=== PATIENT | male | born 1950 | race Caucasian/White ===

== ENCOUNTER → 2017-02-16 | Outpatient (REF) | payer BC ==
[2017-02-16 11:40] LABS: ALBUMIN 3.9 GM/DL (3.2-5.2); ALKALINE PHOSPHATASE 64 U/L (45-117); ALT/SGPT 24 U/L (12-78); ANION GAP 8 MEQ/L (8-16); AST/SGOT 19 U/L (15-37); BILIRUBIN,TOTAL 0.7 MG/DL (0.2-1.0); BLOOD UREA NITROGEN 19 MG/DL (7-18); CARBON DIOXIDE LEVEL 29 MEQ/L (21-32); CHLORIDE LEVEL 100 MEQ/L (98-107); CHOLESTEROL LEVEL 186 MG/DL (<200); CREATININE FOR GFR 0.93 MG/DL (0.70-1.30); GLOMERULAR FILTRATION RATE > 60.0 (>49); GLUCOSE, FASTING 90 MG/DL (80-110); POTASSIUM SERUM 4.3 MEQ/L (3.5-5.1); SODIUM LEVEL 137 MEQ/L (136-145); TOTAL PROTEIN 6.5 GM/DL (6.4-8.2); TRIGLYCERIDES LEVEL 99 MG/DL (<150)
== END ==
LOC: M SFHCPLAZ 07:57
PROVIDERS: ATTEND Internal Medicine
DX: Z00.00 Encounter for general adult medical examination without abnormal findings (principal); I10 Essential (primary) hypertension; E78.00 Pure hypercholesterolemia, unspecified; R97.20 Elevated prostate specific antigen [PSA]

== ENCOUNTER → 2017-12-31 | Outpatient (CLI) | payer MEDICARE | LOC: M SMT 11:12 | DX: I48.1 Persistent atrial fibrillation (principal) | CPT/HCPCS: 84443 ==

== ENCOUNTER 2018-01-04 14:08 | Day surgery (SDC) | payer MEDICARE ==
[2018-01-04] MEDS: LR 1,000 ML IV (14:42)
== END 2018-01-04 18:36 | disposition home or self-care (01) ==
LOC: M SDC 14:08
DX: I48.91 Unspecified atrial fibrillation (principal); K21.9 Gastro-esophageal reflux disease without esophagitis; I10 Essential (primary) hypertension; Z88.8 Allergy status to other drugs, medicaments and biological substances; Z79.899 Other long term (current) drug therapy
CPT/HCPCS: 92960

== ENCOUNTER 2018-02-22 12:23 | Day surgery (SDC) | payer MEDICARE ==
[~2018-02-22 12:23] MED LIST: LIDOCAINE 2% INJ 100 MG/5 ML SDV (FOR ANES.) As Ordered; MIDAZOLAM INJ 2 MG/2 ML VIAL (J2250) As Ordered; ONDANSETRON 4MG/2ML VIAL (J2405) As Ordered; PROPOFOL 200 MG/20 ML VIAL As Ordered
[2018-02-22] MEDS: LR 1,000 ML IV (13:45)
[2018-02-22] MEDS ORDERED: PERCOCET 5MG/325MG TAB PO (15:45)
[2018-02-22] MEDS ORDERED: ONDANSETRON 4MG/2ML VIAL (J2405) IV (15:45)
[2018-02-22] MEDS ORDERED: LR 1,000 ML IV (15:45)
== END 2018-02-22 16:05 | disposition home or self-care (01) ==
LOC: M SDC 12:23
DX: I48.4 Atypical atrial flutter (principal); I48.91 Unspecified atrial fibrillation; R55 Syncope and collapse; I10 Essential (primary) hypertension; E78.5 Hyperlipidemia, unspecified; Z79.82 Long term (current) use of aspirin; Z79.02 Long term (current) use of antithrombotics/antiplatelets; Z79.899 Other long term (current) drug therapy; K21.9 Gastro-esophageal reflux disease without esophagitis
CPT/HCPCS: 92960

== ENCOUNTER → 2018-02-25 | Outpatient (REF) | payer MEDICARE ==
[2018-02-25 12:41] LABS: HEMATOCRIT 45.1 % (42.0-52.0); HEMOGLOBIN 15.3 g/dl (13.5-17.5); MEAN CORPUSCULAR HEMOGLOBIN 32.9 pg (27.0-33.0); MEAN CORPUSCULAR HGB CONC 33.9 g/dl (32.0-36.5); PLATELET COUNT, AUTOMATED 270 10^3/uL (150-450); RED BLOOD COUNT 4.65 10^6/uL (4.30-6.10); WHITE BLOOD COUNT 5.7 10^3/uL (4.0-10.0)
[2018-02-25 13:24] LABS: ALBUMIN/GLOBULIN RATIO 1.18 (1.00-1.93); ALKALINE PHOSPHATASE 79 U/L (45-117); ALT/SGPT 20 U/L (12-78); ANION GAP 6 MEQ/L (8-16); AST/SGOT 16 U/L (7-37); BILIRUBIN,TOTAL 0.8 MG/DL (0.2-1.0); BLOOD UREA NITROGEN 21 MG/DL (7-18); CALCIUM LEVEL 9.3 MG/DL (8.8-10.2); CARBON DIOXIDE LEVEL 29 MEQ/L (21-32); CHLORIDE LEVEL 99 MEQ/L (98-107); CHOLESTEROL LEVEL 226 MG/DL (<200); CHOLESTEROL RISK RATIO 5.255 (<5); CREATININE FOR GFR 1.02 MG/DL (0.70-1.30); GLOMERULAR FILTRATION RATE > 60.0 (>49); GLUCOSE, FASTING 91 MG/DL (70-100); HDL CHOLESTEROL 43 MG/DL (>40); LDL CHOLESTEROL 155 MG/DL (<100); NON-HDL-C 183 MG/DL; POTASSIUM SERUM 5.4 MEQ/L (3.5-5.1); SODIUM LEVEL 134 MEQ/L (136-145); TOTAL PROTEIN 7.4 GM/DL (6.4-8.2); TRIGLYCERIDES LEVEL 141 MG/DL (<150)
== END ==
LOC: M SFHCPLAZ 07:27
DX: Z87.11 Personal history of peptic ulcer disease (principal); I10 Essential (primary) hypertension; E78.00 Pure hypercholesterolemia, unspecified; R97.20 Elevated prostate specific antigen [PSA]
CPT/HCPCS: 80053

== ENCOUNTER → 2018-06-13 | Outpatient (REF) | payer MEDICARE ==
[~2018-06-13] MED LIST changes: +AMIO200T PO; +ESTR1DIS3 TOP; -LIDOCAINE 2% INJ 100 MG/5 ML SDV (FOR ANES.) As Ordered; +LISI20TA PO; -MIDAZOLAM INJ 2 MG/2 ML VIAL (J2250) As Ordered; +MULT1TAB10 PO; -ONDANSETRON 4MG/2ML VIAL (J2405) As Ordered; -PROPOFOL 200 MG/20 ML VIAL As Ordered; +SPIR100T3 PO; +XARE20TA PO
[2018-06-13 14:50] LABS: BASO % 0.5 % (0.0-1.0); EOS # 0.1 10^3/uL (0.0-0.50); EOS % 0.9 % (0.0-3.0); HEMATOCRIT 43.6 % (42.0-52.0); HEMOGLOBIN 14.7 g/dl (13.5-17.5); LYMPH # 1.1 10^3/uL (1.5-4.5); LYMPH % 13.4 % (24.0-44.0); MEAN CORPUSCULAR HEMOGLOBIN 32.5 pg (27.0-33.0); MEAN CORPUSCULAR HGB CONC 33.7 g/dl (32.0-36.5); MEAN CORPUSCULAR VOLUME 96.2 fl (80.0-96.0); MONO % 12.5 % (0.0-5.0); NEUTROPHILS # 5.9 10^3/uL (1.8-7.7); PLATELET COUNT, AUTOMATED 289 10^3/uL (150-450); RED BLOOD COUNT 4.53 10^6/uL (4.30-6.10); WHITE BLOOD COUNT 8.1 10^3/uL (4.0-10.0)
[2018-06-13 14:58] LABS: ALBUMIN 4.2 GM/DL (3.2-5.2); ALT/SGPT 23 U/L (12-78); BILIRUBIN,TOTAL 0.4 MG/DL (0.2-1.0); BLOOD UREA NITROGEN 31 MG/DL (7-18); CALCIUM LEVEL 9.2 MG/DL (8.8-10.2); CARBON DIOXIDE LEVEL 27 MEQ/L (21-32); CHLORIDE LEVEL 98 MEQ/L (98-107); GLOMERULAR FILTRATION RATE > 60.0 (>49); GLUCOSE, FASTING 116 MG/DL (70-100); POTASSIUM SERUM 4.7 MEQ/L (3.5-5.1); SODIUM LEVEL 133 MEQ/L (136-145); TOTAL PROTEIN 7.3 GM/DL (6.4-8.2)
== END ==
LOC: M SMT 13:39
PROVIDERS: ATTEND Internal Medicine Cardiovascular Disease
DX: I48.1 Persistent atrial fibrillation (principal)

== ENCOUNTER → 2018-07-12 | Outpatient (CLI) | payer MEDICARE ==
--- NOTE | 2018-07-17 10:03 | SLEEPHOME ---
DATE OF PROCEDURE: 07/12/2018 ORDERED BY: ABY Barajas Diagnostic home sleep testing was performed due to concern for the obstructive sleep apnea syndrome. For testing a NOX-T3 respiratory monitoring device was used. Continuous record was made of pulse, oxygen saturation, airflow, chest, abdominal strain and body position. 9 hours and 59 minutes of data were reviewed. There were 5 hours marked as time in bed. During the interval marked time in bed, there were 61 respiratory events identified of 10 seconds in duration or greater for a respiratory event index of 12.2. The events were primarily obstructive. Baseline pulse rate 72 beats per minute. Pulse rate ranged from 68-89 beats per minute. Baseline saturation was 94%. Saturations fell to 89%. Testing was performed in both the supine and nonsupine positions. IMPRESSION: Abnormal home sleep testing with repetitive respiratory events and oxygen desaturations to 89% with a respiratory event index of 12.2 is consistent with the obstructive sleep apnea syndrome. RECOMMENDATIONS: The patient should undergo formal sleep evaluation and in-laboratory pressure titration.
== END ==
LOC: M SLEEP HO 09:38
PROVIDERS: ATTEND Internal Medicine Pulmonary Disease
DX: G47.9 Sleep disorder, unspecified (principal)

== ENCOUNTER → 2018-08-28 | Outpatient (REF) | payer MEDICARE ==
[2018-08-28 10:21] LABS: HEMATOCRIT 39.7 % (42.0-52.0); HEMOGLOBIN 13.8 g/dl (13.5-17.5); MEAN CORPUSCULAR HEMOGLOBIN 32.5 pg (27.0-33.0); MEAN CORPUSCULAR HGB CONC 34.8 g/dl (32.0-36.5); MEAN CORPUSCULAR VOLUME 93.4 fl (80.0-96.0); PLATELET COUNT, AUTOMATED 280 10^3/uL (150-450); RED BLOOD COUNT 4.25 10^6/uL (4.30-6.10); WHITE BLOOD COUNT 6.3 10^3/uL (4.0-10.0)
[2018-08-28 10:59] LABS: ALBUMIN 4.1 GM/DL (3.2-5.2); ALT/SGPT 20 U/L (12-78); BILIRUBIN,TOTAL 0.6 MG/DL (0.2-1.0); BLOOD UREA NITROGEN 22 MG/DL (7-18); CARBON DIOXIDE LEVEL 30 MEQ/L (21-32); CHLORIDE LEVEL 97 MEQ/L (98-107); CHOLESTEROL LEVEL 203 MG/DL (<200); CREATININE FOR GFR 0.89 MG/DL (0.70-1.30); GLOMERULAR FILTRATION RATE > 60.0 (>49); GLUCOSE, FASTING 94 MG/DL (70-100); HDL CHOLESTEROL 43 MG/DL (>40); LDL CHOLESTEROL 134 MG/DL (<100); NON-HDL-C 160 MG/DL; POTASSIUM SERUM 4.5 MEQ/L (3.5-5.1); SODIUM LEVEL 132 MEQ/L (136-145); TRIGLYCERIDES LEVEL 131 MG/DL (<150)
== END ==
LOC: M SFHCPLAZ 07:59
PROVIDERS: ATTEND Internal Medicine
DX: I11.9 Hypertensive heart disease without heart failure (principal); E78.00 Pure hypercholesterolemia, unspecified; Z92.29 Personal history of other drug therapy

== ENCOUNTER → 2018-11-06 | Outpatient (CLI) | payer MEDICARE ==
[2018-11-06 12:54] LABS: BLOOD UREA NITROGEN 19 MG/DL (7-18); CALCIUM LEVEL 9.5 MG/DL (8.8-10.2); CARBON DIOXIDE LEVEL 29 MEQ/L (21-32); CHLORIDE LEVEL 103 MEQ/L (98-107); CREATININE FOR GFR 0.84 MG/DL (0.70-1.30); GLOMERULAR FILTRATION RATE > 60.0 (>49); GLUCOSE, FASTING 93 MG/DL (70-100); SODIUM LEVEL 138 MEQ/L (136-145)
== END ==
LOC: M WUC 08:22
PROVIDERS: ATTEND Internal Medicine Cardiovascular Disease
DX: I48.1 Persistent atrial fibrillation (principal)

== ENCOUNTER → 2019-02-19 | Outpatient (CLI) | payer MEDICARE ==
[~2019-02-19] MED LIST changes: -LISI20TA PO; +LISI20TA19 PO
== END ==
LOC: M SLEEP 19:25
PROVIDERS: ATTEND Nurse Practitioner Family
DX: G47.33 Obstructive sleep apnea (adult) (pediatric) (principal)

== ENCOUNTER 2019-04-12 10:59 | Inpatient (IN) | payer MEDICARE ==
[~2019-04-12] VITALS: Ht 185.4 cm; Wt 84.8 kg
[2019-04-12] MEDS ORDERED: LISI-1046 PO (11:12)
[2019-04-12] MEDS ORDERED: NS 1,000 ML IV SCH (11:37)
[2019-04-12] MEDS ORDERED: MORPHINE 4 MG/ML 1ML VIAL/SYRINGE (J2270) IV PRN (11:45)
[2019-04-12 12:16] LABS: BASO % 0.2 % (0.0-1.0); HEMATOCRIT 43.4 % (42.0-52.0); HEMOGLOBIN 14.9 g/dl (13.5-17.5); LYMPH # 0.5 10^3/uL (1.5-5.0); LYMPH % 5.1 % (24.0-44.0); MEAN CORPUSCULAR HEMOGLOBIN 32.5 pg (27.0-33.0); MEAN CORPUSCULAR HGB CONC 34.3 g/dl (32.0-36.5); MEAN CORPUSCULAR VOLUME 94.6 fl (80.0-96.0); MONO # 0.4 10^3/uL (0.0-0.8); MONO % 4.4 % (0.0-5.0); NEUTROPHILS # 8.3 10^3/uL (1.5-8.5); NEUTROPHILS % 89.9 % (36.0-66.0); PLATELET COUNT, AUTOMATED 224 10^3/uL (150-450); RED BLOOD COUNT 4.59 10^6/uL (4.30-6.10); WHITE BLOOD COUNT 9.2 10^3/uL (4.0-10.0)
[2019-04-12 12:42] LABS: ALBUMIN 3.9 GM/DL (3.2-5.2); ALT/SGPT 17 U/L (12-78); BILIRUBIN,DIRECT 0.1 MG/DL (0.0-0.2); BILIRUBIN,TOTAL 0.6 MG/DL (0.2-1.0); BLOOD UREA NITROGEN 18 MG/DL (7-18); CARBON DIOXIDE LEVEL 27 MEQ/L (21-32); CHLORIDE LEVEL 102 MEQ/L (98-107); CREATININE FOR GFR 0.86 MG/DL (0.70-1.30); GLOMERULAR FILTRATION RATE > 60.0 (>49); GLUCOSE, FASTING 116 MG/DL (70-100); LIPASE 66 U/L (73-393); POTASSIUM SERUM 4.3 MEQ/L (3.5-5.1); SODIUM LEVEL 136 MEQ/L (136-145)
--- NOTE | 2019-04-12 12:46 | REP ---
Clinical: Abdominal pain. Small bowel obstruction Technique: Upright view of the chest with supine and upright views of the abdomen and pelvis. Findings: Frontal upright view of the chest demonstrates no acute cardiopulmonary process or free air below the diaphragm to suspect pneumoperitoneum. Supine and upright views of the abdomen and pelvis demonstrate nonspecific bowel gas pattern without obstruction or perforation. No organomegaly. No abnormal calcifications. Skeletal structures demonstrate chronic dextroconvex scoliosis. Impression: Nonspecific bowel gas pattern by xray. Correlation is made with outside CT examination which did demonstrate element of small bowel obstruction due to a right inguinal hernia containing dilated afferent and collapsed efferent loop of small bowel. Electronically Signed by Addy Lin MD 04/12/2019 12:38 P
[2019-04-12] MEDS ORDERED: PROPOFOL 200 MG/20 ML VIAL As Ordered ONE (14:33)
[2019-04-12] MEDS ORDERED: ROCURONIUM BROMIDE 50 MG/5 ML VIAL As Ordered ONE ×2 (14:33→17:05)
[2019-04-12] MEDS ORDERED: LIDOCAINE 2% INJ 100 MG/5 ML SDV (FOR ANES.) As Ordered ONE (14:35)
[2019-04-12] MEDS ORDERED: dexameTHASONE 4 MG/ML 1ML VIAL (J1100) As Ordered ONE (14:35)
[2019-04-12] MEDS ORDERED: ONDANSETRON 4MG/2ML VIAL (J2405) As Ordered ONE (14:35)
[2019-04-12] MEDS ORDERED: MIDAZOLAM INJ 2 MG/2 ML VIAL (J2250) As Ordered ONE (14:40)
[2019-04-12] MEDS ORDERED: fentaNYL 100 MCG/2 ML INJECTION (J3010) As Ordered ONE ×2 (14:40→16:49)
[2019-04-12] MEDS ORDERED: BUPIVACAINE/EPIN 0.25% 30 ML VIAL As Ordered ONE (15:24)
[2019-04-12] MEDS ORDERED: ceFAZolin 1GM INJ (J0690 PER 500MG) As Ordered ONE (16:27)
[2019-04-12] MEDS ORDERED: ACETAMINOPHEN 1000MG 100ML IV BTL (OFIRMEV) (J0131 PER 10MG) As Ordered ONE (16:42)
[2019-04-12] MEDS ORDERED: KETAMINE HCL 200 MG/20 ML VIAL As Ordered ONE ×2 (16:53→19:34)
[2019-04-12] MEDS ORDERED: SUGAMMADEX SODIUM 500 MG/5 ML VIAL (BRIDION) As Ordered ONE (16:53)
[2019-04-12] MEDS ORDERED: MORPHINE 2 MG/ML 1ML VIAL (J2270) IV PRN ×2 (18:00)
[2019-04-12] MEDS ORDERED: ONDANSETRON 4MG/2ML VIAL (J2405) IV PRN ×2 (18:00→18:30)
[2019-04-12] MEDS ORDERED: PERCOCET 5MG/325MG TAB As Ordered ONE (18:18)
[2019-04-12] MEDS: PERCOCET 5MG/325MG TAB PO PRN (18:22)
[2019-04-12] MEDS ORDERED: fentaNYL 100 MCG/2 ML INJECTION (J3010) IV PRN (18:30)
[2019-04-12] MEDS ORDERED: LR 1,000 ML IV SCH (18:30)
[2019-04-12] MEDS ORDERED: HYDROMORPHONE HCL 0.5 MG/ 0.5 ML SYRINGE (J1170 PER 1) IV PRN (18:30)
[2019-04-12] MEDS ORDERED: PERCOCET 5MG/325MG TAB PO PRN (18:30)
[2019-04-12 18:41] VITALS: BP 157/92
[2019-04-12] MEDS: LR 1,000 ML IV SCH ×2 (18:51→22:59)
[2019-04-12] MEDS: DOCUSATE SODIUM 100 MG CAP PO SCH (20:21)
[2019-04-12 21:15] VITALS: BP 68/40
[2019-04-12 21:25] VITALS: BP 68/40
[2019-04-12] MEDS ORDERED: SUCRALFATE SUSP 1GM/10ML UD PO ONE (21:30)
[2019-04-12] MEDS ORDERED: NS 1,000 ML IV ONE ×2 (21:30)
[2019-04-12 21:46] VITALS: BP 138/82
[2019-04-12 21:49] LABS: BASO % 0.1 % (0.0-1.0); HEMATOCRIT 37.5 % (42.0-52.0); HEMOGLOBIN 12.8 g/dl (13.5-17.5); LYMPH # 0.4 10^3/uL (1.5-5.0); MEAN CORPUSCULAR HEMOGLOBIN 32.5 pg (27.0-33.0); MEAN CORPUSCULAR HGB CONC 34.1 g/dl (32.0-36.5); MEAN CORPUSCULAR VOLUME 95.2 fl (80.0-96.0); MONO # 0.7 10^3/uL (0.0-0.8); MONO % 4.6 % (0.0-5.0); NEUTROPHILS # 12.9 10^3/uL (1.5-8.5); NEUTROPHILS % 91.8 % (36.0-66.0); PLATELET COUNT, AUTOMATED 221 10^3/uL (150-450); RED BLOOD COUNT 3.94 10^6/uL (4.30-6.10)
[2019-04-12 22:20] LABS: CK-MB VALUE MASS 3.9 NG/ML (<3.6); CPK CREATINE PHOSPHOKINASE 73 U/L (39-308); MB/CK RELATIVE INDEX 5.34 (< OR =4); TROPONIN I < 0.02 NG/ML (< 0.10)
[2019-04-12 22:41] LABS: ERYTHROCYTE SEDIMENTATION RATE 4 mm/hr (0-20)
--- NOTE | 2019-04-12 22:43 | REPVR ---
PROCEDURE INFORMATION: Exam: XR Chest, 1 View Exam date and time: 04/12/2019 9:28 PM Clinical history: 68 years old, male; Other: Chest pain TECHNIQUE: Imaging protocol: XR of the chest Views: 1 view. COMPARISON: CR Abdomen,Flat Upright,PA CHEST 04/12/2019 12:11 PM FINDINGS: Tubes, catheters and devices: Loop recorder demonstrated in the precordium. Lungs: Unremarkable. No consolidation. Pleural space: Unremarkable. No pleural effusion. No pneumothorax. Heart/Mediastinum: Unremarkable. No cardiomegaly. Bones/joints: Unremarkable. IMPRESSION: No acute findings. Electronically signed by: Ankur Bacon On 04/12/2019 22:42:52 PM
[2019-04-12 22:45] VITALS: BP 126/78
[2019-04-12 22:50] LABS: ALT/SGPT 13 U/L (12-78); BILIRUBIN,TOTAL 0.6 MG/DL (0.2-1.0); BLOOD UREA NITROGEN 18 MG/DL (7-18); C REACTIVE PROTEIN QUANTITATIV < 0.30 MG/DL (0.00-0.30); CALCIUM LEVEL 7.9 MG/DL (8.8-10.2); CARBON DIOXIDE LEVEL 25 MEQ/L (21-32); CHLORIDE LEVEL 104 MEQ/L (98-107); GLOMERULAR FILTRATION RATE > 60.0 (>49); GLUCOSE, FASTING 162 MG/DL (70-100); POTASSIUM SERUM 4.3 MEQ/L (3.5-5.1); SODIUM LEVEL 136 MEQ/L (136-145); TOTAL PROTEIN 5.4 GM/DL (6.4-8.2)
[2019-04-12] MEDS: PANTOPRAZOLE 40MG INJ (PROTONIX) (C9113) IV SCH (22:59)
[2019-04-12 23:47] VITALS: BP 125/69
[2019-04-13] VITALS (26 sets, daily range): BP systolic 70–124; BP diastolic 46–77; O2SAT 100
--- NOTE | 2019-04-13 00:57 | IPNPDOC ---
Text Note Date of Service The patient was seen on 04/12/19. NOTE A code purple was called on patient due to low bp of 84 at bedside. On assess ment , patient was afebrile, complained that he felt like he was going to pass out. . He denied epigastric pain, denies hematemesis, denied any bleeding. 1 L of fluid was ordered. Patient's blood pressure responded appropriately. EKG was sinus, without any ST elevation, no T-wave abnormality, AR intervals within limits. Telemetry was added to patient for continued monitoring. Chemistries was unremarkable. CBC did show an increased and the PVC from 9.2 this a.m. to 14.0. This could be explained by patient's Decadron usage. Chest x-ray was negative for any acute findings. Patient will continue to monitor overnight for any activity. He is currently stable. PE VITALS: See Below GENERAL APPEARANCE: Alert no acute distress. SKIN: Warm, well perfused. ENT: Palate intact, roy tympanic membrane no bulging, no erythema, Neck supple, no thyromegaly LUNGS: Clear to auscultation bilaterally. HEART: Normal S1, S2. No murmurs, no rubs, no gallops ABDOMEN: Soft. No masses. Bowel sounds are present. Healing surgical scar on patient's right abdomen, no purulent drainage, no signs of infection TRUNK/SPINE:Straight. EXTREMITIES: Moves all extremities equally. No gross deformities. PULSES: 2+ upper and lower extremity . Assessment and plan. Continue treatment and plan as indicated by patient's primary care team VS,Roldan, I+O VS, Roldan, I+O Laboratory Tests 04/12/19 11:37 04/12/19 21:42 Vital Signs Date Time Temp Pulse Resp B/P (MAP) Pulse Ox O2 Delivery O2 Flow Rate FiO2 04/12/19 23:47 98.6 86 12 125/69 (87) 100 Nasal Cannula 2.0 ANGELES PATTEN DO Apr 13, 2019 00:57
[2019-04-13] MEDS: PERCOCET 5MG/325MG TAB PO PRN (01:13)
[2019-04-13] MEDS: LR 1,000 ML IV SCH ×4 (02:53→16:41)
[2019-04-13] MEDS ORDERED: KETOROLAC 30 MG/ML VIAL (J1885) IV SCH (03:00)
--- NOTE | 2019-04-13 05:45 | CR.PDOC ---
General Date of Consultation: Apr 13, 2019 Referring Provider: Gautam Mirza Jr Primary Care Physician: Tyrel Edmonds Attending Physician: DEV LONDON MD Consultation REASON FOR CONSULTATION/CHIEF COMPLAINT: Consultation for medical management HISTORY OF PRESENT ILLNESS: ALLERGIES: Please see below. HOME MEDICATIONS: Please see below. PAST MEDICAL HISTORY: ESSENTIAL HYPERTENSION HYPERCHOLESTEROLEMIA HISTORY OF PEPTIC ULCER DISEASE ELEVATED PROSTATE SPECIFIC ANTIGEN (PSA) PERSONAL HISTORY OF ONGOING TREATMENT WITH HORMONAL THERAPY PERSISTENT ATRIAL FIBRILLATION PAST SURGICAL HISTORY: TONSILLECTOMY IN CHILDHOOD APPENDECTOMY IN CHILDHOOD RIGHT KNEE MENISCUS REPAIR 2004 RIGHT INGUINAL HERNIA REPAIR 2006 REPAIR OF LACERATED EXTENSOR TENDONS LEFT WRIST 2009 PROSTATE BIOPSIES 03/2011, 05/2011. COLONOSCOPY 11/2002 COLONOSCOPY 11/2013 ROTATOR CUFF REPAIR, LEFT 06/2014 ORAL SURGERY 05/2015 EXCISION OF BASAL CELL CARCINOMA OF THE NOSE EARLY 2017? LEFT EYE CATARACT EXTRACTION 09/20/2017 RIGHT EYE CATARACT EXTRACTION 10/18/2017 CARDIAC ABLATION 07/04/2018 FAMILY HISTORY: Father of natural causes at the age of 91, mother at 89 of natural causes. One brother was diabetic and was on hemodialysis. He at the age of 56. SOCIAL HISTORY: , lives with his , denies alcohol. Denies tobacco use REVIEW OF SYSTEMS: CONSTITUTIONAL: No fevers, denies chills, denies weight loss, denies lethargy HEENT: No rhinorrhea, no itchy eyes, no congesion, CARDIOVASCULAR: No murmurs no palpitations and arrhythmias RESPIRATORY: Not cough, No SOB, no issues to report GASTROINTESTINAL: No nausea, no vomiting, no difficulty swallowing, no pain with eating, no diarrhea HEMATOLOGICAL: No bleeding GENITOURINARY:No Issues HEMATOLOGIC/LYMPHATIC: No swelling Physical exam VITALS: See Below GENERAL APPEARANCE: Alert no acute distress. SKIN: Warm, well perfused. LUNGS: Clear to auscultation bilaterally. HEART: Normal S1, S2. No murmurs, no rubs, no gallops ABDOMEN: Soft. No masses. Bowel sounds are present. Healing surgical scar on patient's right side of his abdomen in the right lower quadrant, no purulent drainage, no signs of infection EXTREMITIES: Moves all extremities equally. No gross deformities. PULSES: 2+ upper and lower extremity . LABORATORY DATA: Please see below. ASSESSMENT/PLAN: Patient is a 68-year-old man status post right inguinal repair, with small bowel resection. Been consulted for medical management of chronic medical condition. 1. That is post right inguinal repair with small bowel resection - tolerated the procedure without difficulty. Continues to follow-up with surgery. -Pain is well-controlled -No signs of postoperative infection, no signs of bleeding 2. Persistent atrial fibrillation relation -Telemetry -Hold Xarelto due to surgery 3. Essential hypertension -Continue home medication 5.ELEVATED PROSTATE SPECIFIC ANTIGEN (PSA) -Follow up with outpatient PCP -Hold patient's Estradiol 6. DVT -TEDs Vital Signs/I&O Vital Signs Date Time Temp Pulse Resp B/P (MAP) Pulse Ox O2 Delivery O2 Flow Rate FiO2 04/13/19 05:09 98.3 86 21 74/54 (61) 97 Nasal Cannula 2.0 I&O- Last 24 Hours up to 6 AM 04/13/19 06:00 Intake Total 1040 ml Output Total 525 ml Balance 515 ml Laboratory Data Labs 24H Laboratory Tests 2 04/12/19 11:37: Immature Granulocyte % (Auto) 0.4, Neutrophils (%) (Auto) 89.9H, Lymphocytes (%) (Auto) 5.1L, Monocytes (%) (Auto) 4.4, Eosinophils (%) (Auto) 0.0, Basophils (%) (Auto) 0.2, Neutrophils # (Auto) 8.3, Lymphocytes # (Auto) 0.5L, Monocytes # (Auto) 0.4, Eosinophils # (Auto) 0.0, Basophils # (Auto) 0.0, Nucleated Red Blood Cells % (auto) 0.0, Anion Gap 7L, Glomerular Filtration Rate > 60.0, Calcium Level 9.0, Total Bilirubin 0.6, Direct Bilirubin 0.1, Aspartate Amino Transf (AST/SGOT) 12, Alanine Aminotransferase (ALT/SGPT) 17, Alkaline Phosphatase 80, Total Protein 7.0, Albumin 3.9, Albumin/Globulin Ratio 1.26, Lipase 66L 04/12/19 11:48: Urine Color YELLOW, Urine Appearance CLEAR, Urine pH 6.0, Urine Specific Cumming >1.060H, Urine Protein NEGATIVE, Urine Glucose (UA) NEGATIVE, Urine Ketones 1+H, Urine Blood NEGATIVE, Urine Nitrite NEGATIVE, Urine Bilirubin NEGATIVE, Urine Urobilinogen 0.2, Urine Leukocyte Esterase NEGATIVE, Urine WBC (Auto) 1, Urine RBC (Auto) 6H, Urine Hyaline Casts (Auto) 0, Urine Bacteria (Auto) NEGATIVE, Urine Squamous Epithelial Cells 0, Urine Mucus (Auto) SMALL, Urine Sperm (Auto) , Lactic Acid Level 1.3 04/12/19 21:19: Bedside Glucose (Misc Panel) 163H 04/12/19 21:42: Immature Granulocyte % (Auto) 0.5, Neutrophils (%) (Auto) 91.8H, Lymphocytes (%) (Auto) 3.0L, Monocytes (%) (Auto) 4.6, Eosinophils (%) (Auto) 0.0, Basophils (%) (Auto) 0.1, Neutrophils # (Auto) 12.9H, Lymphocytes # (Auto) 0.4L, Monocytes # (Auto) 0.7, Eosinophils # (Auto) 0.0, Basophils # (Auto) 0.0, Nucleated Red Blood Cells % (auto) 0.0, Anion Gap 7L, Glomerular Filtration Rate > 60.0, Calcium Level 7.9L, Total Bilirubin 0.6, Aspartate Amino Transf (AST/SGOT) 11, Alanine Aminotransferase (ALT/SGPT) 13, Alkaline Phosphatase 63, Total Protein 5.4#L, Albumin 3.0#L, Albumin/Globulin Ratio 1.25, Lactic Acid Level 1.3, Erythrocyte Sedimentation Rate 4, Total Creatine Kinase 73, Creatine Kinase MB 3.9H, Creatine Kinase MB Relative Index 5.34H, Troponin I < 0.02, C-Reactive Protein, Quantitative < 0.30 CBC/BMP Laboratory Tests 04/12/19 11:37 04/12/19 21:42 Allergies Coded Allergies: aspirin (Verified Adverse Reaction, Unknown, hx ulcer, 04/12/19) hx ulcer Home Medications Scheduled Estradiol (Estradiol) 0.05 Mg/24 Hr Dis, TOP 2XW, (Reported) sun wed Multivitamins (Multivitamin Adults) 1 Tab Tab, 1 TAB PO DAILY, (Reported) Rivaroxaban (Xarelto) 20 Mg Tab, 20 MG PO DAILY, (Reported) Miscellaneous Medications Lisinopril (Lisinopril) 2.5 Mg Tablet, (Reported) GME ATTESTATION GME ATTESTATION My faculty preceptor for this patient encounter was physically present during the encounter and was fully available. All aspects of the patient interview, examination, medical decision making process, and medical care plan development were reviewed and approved by the faculty preceptor. The faculty preceptor is aware and concurs with the plan as stated in the body of this note and will attest to such by his/her cosignature. ANGELES PATTEN DO Apr 13, 2019 05:45
[2019-04-13 05:50] LABS: HEMATOCRIT 29.4 % (42.0-52.0); MEAN CORPUSCULAR HEMOGLOBIN 32.7 pg (27.0-33.0); MEAN CORPUSCULAR HGB CONC 33.7 g/dl (32.0-36.5); PLATELET COUNT, AUTOMATED 235 10^3/uL (150-450); RED BLOOD COUNT 3.03 10^6/uL (4.30-6.10)
[2019-04-13 05:53] LABS: HEMOGLOBIN 9.9 g/dl (13.5-17.5)
[2019-04-13 06:30] LABS: ALBUMIN 2.6 GM/DL (3.2-5.2); ALT/SGPT 10 U/L (12-78); BILIRUBIN,TOTAL 0.7 MG/DL (0.2-1.0); BLOOD UREA NITROGEN 22 MG/DL (7-18); CALCIUM LEVEL 7.8 MG/DL (8.8-10.2); CARBON DIOXIDE LEVEL 25 MEQ/L (21-32); CHLORIDE LEVEL 103 MEQ/L (98-107); CK-MB VALUE MASS 4.3 NG/ML (<3.6); CPK CREATINE PHOSPHOKINASE 75 U/L (39-308); CREATININE FOR GFR 1.08 MG/DL (0.70-1.30); GLOMERULAR FILTRATION RATE > 60.0 (>49); GLUCOSE, FASTING 164 MG/DL (70-100); MB/CK RELATIVE INDEX 5.73 (< OR =4); POTASSIUM SERUM 4.9 MEQ/L (3.5-5.1); SODIUM LEVEL 136 MEQ/L (136-145); TOTAL PROTEIN 4.9 GM/DL (6.4-8.2); TROPONIN I < 0.02 NG/ML (< 0.10)
[2019-04-13] MEDS ORDERED: VITMTA PO (07:21)
[2019-04-13] MEDS ORDERED: NS 1,000 ML IV ONE (07:30)
--- NOTE | 2019-04-13 07:36 | IPNPDOC ---
Text Note Date of Service The patient was seen on 04/13/19. NOTE Significant event history: Max cart was called at 7AM. Per nursing report, came in for vitals and Mr. Hoskins was unresponsive. Tele showed sinus bradycardia to 34, initial BP with SBP of 50s, did not check pulse at the time, saturating 96% on 2L. Max cart was called and by the time MD was at bedside, he had started responding. FSBG - >100 repeat SBP - low 100s pulse now 78 saturating 98% on 2L Afebrile Answering questions appropriately, reporting that feels incredibly weak before he becomes unresponsive but does not have worsening abdominal pain, no chest p ain, no palpitations, vision changes, headaches or shortness of breath. MD Exam: Now normotensive, afebrile, RRR, clear to auscultation, euvolemic with no LE edema or JVD, comfortably breathing and speaking in full sentences on 2L NC as prior, no new hematoma, benign abdominal exam, non tender, soft, +bowel sounds, stable neuro exam, AOx3, cranial nerves intact, moving all extremities without any asymmetric weakness. Context - 68M with a history of supraventricular tachyarrhythmias s/p cardioversion and ablation and hypertension, originally presented to [facility] and transferred to [facility] s/p small bowel resection and hernia repair with EBL only 25cc, presenting H/H normal now Hgb 9s s/p aggressive fluids in the setting of episodic hypotensive episodes with brief LOC. Plan -Will get lactate, EKG, continue fluids at 250cc/hr LR and transfer to ICU for close monitoring with tele. -Family notified of episode and transfer -Surgeon already aware of the similar overnight episodes with medicine team managing VS,Fishbone, I+O VS, Fishbone, I+O Laboratory Tests 04/12/19 11:37 04/12/19 21:42 04/13/19 05:24 Vital Signs Date Time Temp Pulse Resp B/P (MAP) Pulse Ox O2 Delivery O2 Flow Rate FiO2 04/13/19 06:37 97.3 87 21 95/61 (72) 100 Nasal Cannula 2.0 l I&O- Last 24 Hours up to 6 AM 04/13/19 06:00 Intake Total 1040 ml Output Total 525 ml Balance 515 ml ALEXANDER MCLAUGHLIN MD Apr 13, 2019 07:36
[2019-04-13] MEDS ORDERED: ISOVUE-370 76% 100ML VIAL (Q9967) As Ordered ONE (08:33)
--- NOTE | 2019-04-13 08:56 | REP ---
Clinical: Unresponsive episode . Findings: Age-related atrophy and microvascular ischemic changes are appreciated. The ventricles and sulci are symmetric. Cantrell-white differentiation is maintained. There is no evidence for acute intracranial hemorrhage, mass/mass effect, pathology or infarction. No extra-axial fluid collection. Calvarium is intact. Paranasal sinuses and mastoid air cells are clear. Impression: Age related atrophy and microvascular ischemic changes. No acute intracranial hemorrhage, infarction, or mass/mass effect. Electronically Signed by Addy Lin MD 04/13/2019 08:47 A
[2019-04-13] MEDS ORDERED: PANTOPRAZOLE 40MG INJ (PROTONIX) (C9113) IV SCH (09:00)
--- NOTE | 2019-04-13 09:09 | REP ---
Clinical: Acute chest pain. Technique: Axial contrast enhanced images from the thoracic inlet to the upper abdomen using 100 ml Isovue 370 intravenous contrast material with coronal and sagittal re-formations. Findings: Satisfactory enhancement of the pulmonary vasculature is achieved and no filling defects are identified to suggest pulmonary embolus. Thoracic aorta is normal caliber without aneurysm or dissection. Heart and pericardium are normal. Bilateral lung cade are well aerated and clear without acute pulmonary parenchymal consolidation or atelectasis. No nodule or mass lesion. No pleural effusion/reaction. No pneumothorax. No adenopathy. Impression: No evidence for pulmonary embolus. No acute pleuroparenchymal or mediastinal process. Electronically Signed by Addy Lin MD 04/13/2019 09:00 A
[2019-04-13] MEDS: SUCRALFATE SUSP 1GM/10ML UD PO SCH ×3 (10:37→16:40)
--- NOTE | 2019-04-13 10:38 | REP ---
Clinical: Postoperative assessment. Unresponsive. Technique: Axial contrast enhanced images from the lung bases to the pubic symphysis the with coronal and sagittal re-formations using 100 ml Isovue 370 intravenous contrast material. Findings: Moderate amount of mixed density intraperitoneal fluid is appreciated suggesting ascites and hemorrhagic products. Along the right paracolic gutter inferior to the liver and extending into the right nikhil pelvis is a presumed hematoma measuring roughly approximately 8.5 cm maximal diameter and approximately 16 cm in maximal length. Small arterial enhanced vessels in the right lower quadrant are identified and active small arterial bleeders cannot be excluded. Stranding, fluid, and gas in the right inguinal region extending into the right groin are noted and consistent with the recent repair for incarcerated inguinal hernia and associated small bowel obstruction. Liver, spleen, pancreas, gallbladder, bilateral adrenal glands and kidneys are relatively normal / stable. Hepatic and renal cysts are again identified and unchanged. There is no evidence for bowel obstruction. Colonic and sigmoid diverticula noted without acute diverticulitis. Jimenez catheter identified in collapsed bladder. Musculoskeletal structures are intact. Lung bases are clear. Impression: 1. Findings consistent with a moderate-sized hematoma in the right mid to lower abdomen extending into the pelvis as described above with mixed density ascites. Active small arterial bleeder in the right lower quadrant cannot definitively be excluded. 2. Postoperative changes in the right groin/inguinal region consistent with prior small bowel obstruction due to incarcerated inguinal hernia. Electronically Signed by Addy Lin MD 04/13/2019 10:29 A
[2019-04-13] MEDS: DOCUSATE SODIUM 100 MG CAP PO SCH (11:04)
[2019-04-13] MEDS: TRANEXAMIC ACID 650 MG PO SCH ×2 (11:05→16:40)
[2019-04-13] MEDS: PANTOPRAZOLE 40MG INJ (PROTONIX) (C9113) IV SCH (11:05)
--- NOTE | 2019-04-13 11:54 | ECGEPIP ---
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
[2019-04-13] MEDS ORDERED: PROTHROMBIN COMPLEX CONCEN IV ONE (12:00)
[2019-04-13] MEDS ORDERED: DILUENT IV ONE (12:00)
[2019-04-13 14:44] LABS: HEMATOCRIT 34.1 % (42.0-52.0); HEMOGLOBIN 11.2 g/dl (13.5-17.5); MEAN CORPUSCULAR HEMOGLOBIN 31.3 pg (27.0-33.0); MEAN CORPUSCULAR HGB CONC 32.8 g/dl (32.0-36.5); MEAN CORPUSCULAR VOLUME 95.3 fl (80.0-96.0); PLATELET COUNT, AUTOMATED 228 10^3/uL (150-450); RED BLOOD COUNT 3.58 10^6/uL (4.30-6.10)
--- NOTE | 2019-04-13 14:57 | REP ---
Clinical: Bleeding. Technique: Portable views of the abdomen. Findings: Examination is limited and incomplete. Visualized portions of the abdomen demonstrate nonspecific bowel gas pattern. Impression: Extremely limited examination. No obvious pathology. Electronically Signed by Addy Lin MD 04/13/2019 02:49 P
--- NOTE | 2019-04-13 15:10 | HPE ---
DATE OF ADMISSION: 04/12/2019 BRIEF HISTORY OF PRESENT ILLNESS: Patient is a 68-year-old male who presents with acute onset of nausea, vomiting, abdominal pain and evidence of bowel obstruction on his x-rays at the [facility], was found to have a "enlarged right groin lymph node" at [facility] and was asked to transfer to our hospital. He was transferred down to our hospital and on his exam, felt that the location of the area was consistent much more with a hernia and the radiologist here read it as a possible inguinal hernia. He was brought into the emergency room, had been placed in Trendelenburg position with an ice pack on his right groin and attempts at reducing this did provide some minimal reduction of this. Further reduction of this was not able to be obtained. He still had a lump present without significant tenderness in this area. PAST MEDICAL HISTORY: Significant for: 1. History of hypertension. 2. Hypercholesterolemia. 3. Peptic ulcer disease. 4. Elevated PSA. 5. Atrial fibrillation, currently on anticoagulation with Xarelto. 6. History of tonsillectomy. 7. Appendectomy. 8. Right meniscus surgery (knee). 9. Left inguinal hernia repair. 10. Left wrist surgery. 11. Prostate biopsies. 12. Rotator cuff repair. 13. Cardiac ablation. MEDICATIONS: Include the following: - estradiol - multivitamin - Xarelto - lisinopril PHYSICAL EXAMINATION: Reveals a 68-year-old white male who looks stated age. HEENT: Unremarkable. Neck supple without adenopathy. LUNGS: Clear to auscultation. HEART: Regular with a few irregular beats. ABDOMEN: Softly distended. He has significant hyperactive bowel sounds. He does have in the right inguinal area, and actually low down on the right inguinal area, and I think this may be a femoral hernia or possibly a direct inguinal hernia that is incarcerated at this time. IMPRESSION AND PLAN: Patient has evidence of incarcerated right inguinal hernia. I have discussed with the patient operative intervention for this, which included open operative intervention. Risks as well as benefits have been discussed with him at length, those including, but not limited to, infection, bleeding, damage to surrounding structures, as well as possible need for small-bowel resection. Given his anticoagulation, I have instructed him that unfortunately has a much higher risk for of bleeding issues associated with this. He understands and will plan on proceeding with right inguinal hernia surgery.
[2019-04-13] MEDS ORDERED: PIPERACILLIN/TAZOBACTAM SOD 3.375 GM in D5W MINI-BAG PLUS 50 ML IV SCH (16:00)
--- NOTE | 2019-04-13 17:34 | DS.PDOC ---
Discharge Summary General Date of Admission Apr 12, 2019 at 13:00 Date of Discharge 04/13/2019 Attending Physician: Gautam Mirza Jr Specialist/Consultants Involve: ALEXANDER MCLAUGHLIN MD Discharge Summary PROCEDURES PERFORMED DURING STAY: Small bowel resection and right femoral hernia repair ADMITTING DIAGNOSES: 1. Incarcerated right inguinal hernia DISCHARGE DIAGNOSES: 1. Right incarcerated femoral hernia 2. Strangulated small bowel 3. Hypoxemic respiratory failure 4. Acute postop abdominal bleeding with acute blood loss anemia 5. History of atrial fibrillation COMPLICATIONS/CHIEF COMPLAINT: Rt Inguinal Hernia. HISTORY OF PRESENT ILLNESS: 68 year old with a history of supraventricular tachyarrhythmias s/p cardioversion and ablation, Afib on xarelto and hypertension, who originally presented to [facility] with nausea, emesis and acute abdominal pain. HOSPITAL COURSE: At [facility], he was hemodynamically stable and afebrile and on exam was noted to have a right inguinal hernia c/f strangulated hernia. Initial work up at [facility] showed WBC 8, H/H 15/41.5, plts 221, Cr 0.9, LFTswnl, Lactate 1.4, and CT A/P showed an SBO, transition suggested in the lower abdomen/mid pelvis but not definitely identified with a normal terminal ileum and cecum without any evidence for perforation or abscess, and a 3.2cm pathologic-appearing suspected right inguinal lymph node. He was fluids and pain controlled with morphine, had antiemetics and decision was made to transfer him to [facility] for further evaluation and treatment. In the [facility] ED, he was hemodynamically stable and was noted to have a partially reducible right groin hernia. Surgery was consulted and he was taken to the OR where he had a small bowel resection and a right femoral hernia repair with a minimal EBL of 25cc. Of note, the patient was on xarelto with last dose on 04/11 night. His surgery was uneventful with an estimated blood loss of 25cc and he was admitted to the general medical floor with co-managemetn with internal medicine. His course was c/b by 6+ episodes of bradycardia, hypotension, hypoxemia with mild respiratory distress and brief loss of co nsciousness with worsening abdominal pain with no kanwal peritoneal signs with pain severe on right abdominal wall with no ecchymoses. Presenting H/H at [facility] on 04/12 was 14.9/43.4. and on 04/13 AM labs was Hgb 9.9/29.4. Overnight, he had 4 episodes and was given 1L of fluids with maintenance LR at 250cc/hr. There was a mention of twitching and urinary incontinence by nursing during is hypotensive spells and there for he had a noncon head CT, a CTA chest and CT A/P with IV contrast, that showed no acute intracranial abnormalites, no PE or intrathoracic pathology and confirmed a moderate-sized hematoma in the right mid to lower abdomen extending into the pelvis with mixed density ascites and an active small arterial bleeder in the right lower quadrant could definitively be excluded. By 04/13 mid afternoon, he developed shallow breathing and worsening hypoxemia with worsening abdominal pain without kanwal peritoneal signs. He was given 2u pRBCs and transexamic acid, while continuing LR at 250cc/hr. In speaking with Dr. Mirza (surgery), decision was made to transfer patient to a higher level institution for possibility of worsening bleed for evaluation by IR which [facility] does not have at this time, vs. exploration. DISCHARGE MEDICATIONS: Please see below. ALLERGIES: Please see below. PHYSICAL EXAMINATION ON DISCHARGE: VITAL SIGNS: Please see below. GENERAL: mild distress, with NRB mask in place, laying in left decub position SKIN: no ecchymoses LUNGS: Clear to auscultation bilaterally. HEART: Normal S1, S2. No murmurs, no rubs, no gallops ABDOMEN: Hypoactive sounds, soft, old surgical scar on patient's right lower quadrant, R groin entry site with clean dry dressing, tender to palpation, worst in RLQ, no rebound, no guarding, pain with chaning position EXTREMITIES: Warm, well perfused, 2+ DP pulses NEURO: AOx3, grossly non focal examination LABORATORY DATA: Please see below. IMAGIN/3: CTA chest: Satisfactory enhancement of the pulmonary vasculature is achieved and no filling defects are identified to suggest pulmonary embolus. Thoracic aorta is normal caliber without aneurysm or dissection. Heart and pericardium are normal. Bilateral lung cade are well aerated and clear without acute pulmonary parenchymal consolidation or atelectasis. No nodule or mass lesion. No pleural effusion/reaction. No pneumothorax. No adenopathy. Impression: No evidence for pulmonary embolus. No acute pleuroparenchymal or mediastinal process. 04/13: CT A/P with IV contrast: Moderate amount of mixed density intraperitoneal fluid is appreciated suggesting ascites and hemorrhagic products. Along the right paracolic gutter inferior to the liver and extending into the right nikhil pelvis is a presumed hematoma measuring roughly approximately 8.5 cm maximal diameter and approximately 16 cm in maximal length. Small arterial enhanced vessels in the right lower quadrant are identified and active small arterial bleeders cannot be excluded. Stranding, fluid, and gas in the right inguinal region extending into the right groin are noted and consistent with the recent repair for incarcerated inguinal hernia and associated small bowel obstruction. Liver, spleen, pancreas, gallbladder, bilateral adrenal glands and kidneys are relatively normal / stable. Hepatic and renal cysts are again identified and unchanged. There is no evidence for bowel obstruction. Colonic and sigmoid diverticula noted without acute diverticulitis. Jimenez catheter identified in collapsed bladder. Musculoskeletal structures are intact. Lung bases are clear. Impression: 1. Findings consistent with a moderate-sized hematoma in the right mid to lower abdomen extending into the pelvis as described above with mixed density ascites. Active small arterial bleeder in the right lower quadrant cannot definitively be excluded. 2. Postoperative changes in the right groin/inguinal region consistent with prior small bowel obstruction due to incarcerated inguinal hernia. 04/13: noncon head CT: No acute intracranial hemorrhage, infarction, or mass/mass effect. PROGNOSIS: Guarded ACTIVITY: bed rest at this time DIET: NPO DISCHARGE PLAN:Transfer to outside hospital DISPOSITION: Hospital to hospital transfer DISCHARGE INSTRUCTIONS: Placed on empiric zosyn given new leukocytosis ITEMS TO FOLLOWUP ON OUTPATIENT: 1. N/A at this time, being transferred to outside hospital DISCHARGE CONDITION: Stable TIME SPENT ON DISCHARGE: Greater than 46 minutes. Vital Signs/I&Os Vital Signs Date Time Temp Pulse Resp B/P (MAP) Pulse Ox O2 Delivery O2 Flow Rate FiO2 04/13/19 13:30 97.5 85 20 100/62 98 Non-Rebreather 15.0 100 I&O- Last 24 Hours up to 6 AM 04/13/19 06:00 Intake Total 1040 ml Output Total 525 ml Balance 515 ml Laboratory Data Labs 24H Laboratory Tests 2 04/12/19 21:19: Bedside Glucose (Misc Panel) 163H 04/12/19 21:42: Immature Granulocyte % (Auto) 0.5, Neutrophils (%) (Auto) 91.8H, Lymphocytes (%) (Auto) 3.0L, Monocytes (%) (Auto) 4.6, Eosinophils (%) (Auto) 0.0, Basophils (%) (Auto) 0.1, Neutrophils # (Auto) 12.9H, Lymphocytes # (Auto) 0.4L, Monocytes # (Auto) 0.7, Eosinophils # (Auto) 0.0, Basophils # (Auto) 0.0, Nucleated Red Blood Cells % (auto) 0.0, Erythrocyte Sedimentation Rate 4, Anion Gap 7L, Glomerular Filtration Rate > 60.0, Lactic Acid Level 1.3, Calcium Level 7.9L, Total Bilirubin 0.6, Aspartate Amino Transf (AST/SGOT) 11, Alanine Aminotransferase (ALT/SGPT) 13, Alkaline Phosphatase 63, Total Creatine Kinase 73, Creatine Kinase MB 3.9H, Creatine Kinase MB Relative Index 5.34H, Troponin I < 0.02, C-Reactive Protein, Quantitative < 0.30, Total Protein 5.4#L, Albumin 3.0#L, Albumin/Globulin Ratio 1.25 04/13/19 05:24: Nucleated Red Blood Cells % (auto) 0.0, Anion Gap 8, Glomerular Filtration Rate > 60.0, Calcium Level 7.8L, Total Bilirubin 0.7, Aspartate Amino Transf (AST/SGOT) 10, Alanine Aminotransferase (ALT/SGPT) 10L, Alkaline Phosphatase 51, Total Creatine Kinase 75, Creatine Kinase MB 4.3H, Creatine Kinase MB Relative Index 5.73H, Troponin I < 0.02, Total Protein 4.9L, Albumin 2.6L, Albumin/Globulin Ratio 1.13 04/13/19 07:29: Lactic Acid Level 2.8*H 04/13/19 11:43: Lactic Acid Followup at 4 Hours 3.0*H CBC/BMP Laboratory Tests 04/12/19 21:42 04/13/19 05:24 FSBS Laboratory Tests Test 04/12/19 21:19 Range/Units Bedside Glucose (Misc Panel) 163 80-115 MG/DL Discharge Medications Scheduled Lisinopril (Lisinopril) 2.5 Mg Tablet, 2.5 MG PO DAILY, (Reported) Multivitamins (Thera M Plus Tablet) 1 Each Tablet, 1 TAB PO DAILY, (Reported) Rivaroxaban (Xarelto) 20 Mg Tab, 20 MG PO DAILY, (Reported) Allergies Coded Allergies: aspirin (Verified Adverse Reaction, Unknown, hx ulcer, 04/12/19) hx ulcer ALEXANDER MCLAUGHLIN MD Apr 13, 2019 16:10
--- NOTE | 2019-04-13 19:05 | IPN ---
DATE: 04/13/2019 Events of the night have been seen and the patient has been seen multiple times this morning as well as throughout the day concerning his episodes of hypotension that occur and rebound quite quickly. He has had some evidence of bleeding and at this point to me shows evidence of a retroperitoneal bleed on a CT scan that we performed this morning with what the radiologist call a possible bleed, although this is the arterial phase and there is no free bleeding within the retroperitoneum seen on the study. He cannot rule out possible bleeding from the study, although it looks as though it is probably a vessel that he is just seeing the arterial phase, given that I do not see a true blush. And he does have some fluid in his abdomen as well and this all fits rather well with his history of some increasing abdominal distension. At this point it appears that he probably has had some bleeding and I anticipate, given its location in the pelvis / retroperitoneum, I think it is probably more likely that he has some of the preperitoneal tissue that had bled, less likely the anastomosis itself. In any case, he is developing some minimal shortness of breath this afternoon and after discussing with the hospitalist here, concern is that he may have some ongoing bleeding. Although he has not been hypotensive since being evaluated several hours ago and thus it seems as though if he has some active bleeding it is not rapid. However, our next best option, specifically with the Xarelto still in his system, is to see if we cannot find something to angiographically embolize. Unfortunately, we do not have this availability at the hospital here today and thus the hospitalist is arranging transfer for him. I feel that is the next reasonable step for him. He does not have a significantly tense abdomen such as an abdominal compartment syndrome at this time. I am not seeing any generalized peritonitis and does not appear that he has true peritoneal signs, although I do feel that he seems to be much more uncomfortable throughout the right side of his abdominal wall which suggests that he may have had some more oozing or bleeding in the rectus muscle or even along the muscles in his right side pulling possibly even on his repair and that may be why he is a little bit more comfortable in this area. In general, thus, the next step is to see if we cannot evaluate for possible bleeding issues. If he stays here, our next option is to proceed with a possible laparoscopy which given his abdominal distension may require a laparotomy. Laparotomy then given his anticoagulation is also not the best option for him and thus we will see if we cannot arrange the transfer and angiographic evaluation as soon as possible. I do feel that he may need a drainage catheter in his abdomen if he continues to be distended as he is uncomfortable and that may actually provide some relief to his discomfort once his bleeding is determined to be stable / stopped. If however, he has a drainage procedure alone without stopping the bleeding this may actually decrease abdominal pressures and make he bleeding more likely. This I am sure he will discuss with the physicians at his transfer hospital.
--- NOTE | 2019-04-14 06:58 | RO ---
DATE OF PROCEDURE: 04/12/2019 PREOPERATIVE DIAGNOSIS: Right inguinal hernia (incarcerated) POSTOPERATIVE DIAGNOSIS: Right femoral hernia, strangulated small bowel. PROCEDURE: Right femoral hernia repair and small bowel resection. SURGEON: Dr. Gautam Mirza AIR SAMPLER: ANESTHESIA: BRIEF PROCEDURE SUMMARY: The patient was brought to the operating room and was given general anesthesia. After adequate anesthesia and preoperative antibiotics were given, the patient was prepped and draped in the usual sterile fashion. Next, with the patient in the supine position and then placed in a little bit in the Trendelenburg position, gentle pressure in the right inguinal area was performed and I was not able to reduce this hernia. Otherwise I had discussed with the patient if we were able to reduce this, proceeding with a laparoscopy to view if the bowel was compromised or not would be a next reasonable step. Given that it did not reduce, an open right inguinal incision was made with the skin knife. Electrocautery was used cut through dermis, underlying subcutaneous tissue down to the hernia sac itself and this was below the inguinal ligament. After dissecting this area out, care was taken to dissect out on to the hernia sac. This was opened to some extent and then I was able to peel back the wall of the hernia sac down to what appeared to be thickened preperitoneal tissue coming through and eventually I was able to peel this back and taking care to make sure I cauterized all edges and using harmonic scalpel on these edges as well. Once I was able to get this mobilized nicely, the hernia sac off the bowel, the bowel was obviously discolored purplish and venous congested. Thus, placing a Lincoln on the bowel itself so we did not lose this, the edge of the inguinal ligament was further evaluated and a small incision was made on the inguinal ligament. Unfortunately, still it would not deliver the bowel adequately into the wound. An additional cut on the inguinal ligament in this area allowed the small bowel to be better visualized and indeed a good portion of this bowel started to pink up and look better. However, there was still an area which looked not viable, either hemorrhagic transmurally or at least ischemic from this prolonged incarceration. In any case, the bowel was able to be further delivered into the wound at this point and options at this time were to create a small laparotomy and place the contents back into the abdomen or possibly perform a small bowel resection/anastomosis in this area. After mobilizing this area to some extent, I was actually able to get the small bowel delivered adequately so that I could use an echelon 60 stapler to create a [id number] anastomosis. Thus, at this point I took the mesentery with harmonic scalpel in this area. Good hemostasis was achieved with this. Then bowel was taken between Ayana clamps. The necrotic area was clamped and then transected and then the [id number]-my-mopt anastomosis was created. The enterotomy site as well as the small bowel was resected using the echelon 60 stapler green load. Prior to the closure, I was able to view the anastomosis and no active bleeding was appreciated, no significant oozing and overall it looked healthy. The suture line removing the enterotomy was also clean and dry. The small bowel was returned to the abdominal cavity at this time. No oozing in this area was appreciated. Once this was performed and the operative site was clean and dry, I brought the inguinal ligament down to the lateral border of the pubis and using PDS in this area, after placing some Gelfoam given his anticoagulation. I felt placing a little bit of Gelfoam in this area with gauze would also provide not only a barrier but also possible additional hemostasis. A couple of [id number] was used to bring this tissue down and adequately close the hole. Unfortunately, because the bowel had looked somewhat necrotic/ischemic and the bowel was opened, I did not want to put synthetic mesh in this area. Thus, the deep subcutaneous tissue was closed over the top of this with a #2-0 Vicryl, #3-0 Vicryl was used to approximate dermis and #4-0 Vicryl was used to approximate the skin. Steri-Strips and a dry sterile dressing was applied. Local with epinephrine was infiltrated throughout the right inguinal area and good hemostasis was achieved. The patient was awakened, extubated and brought to recovery room awake, alert and hemodynamically stable. Sponge and needle counts were correct times two.
--- NOTE | 2019-04-14 21:37 | ECGEPIP ---
[facility] Test Date: 2019-04-12 Pat Name: PAUL ROCHA Department: Room: J8749-42 Gender: Male State Manager: RICKY : 1950 Requested By: DEV Schuster Order Number: [id number] Reading MD: Tyrel Edmonds Measurements Intervals [place] Rate: 83 P: 88 [place]: 184 QRS: 69 QRSD: 84 T: 73 QT: 363 QTc: 428 Interpretive Statements Normal sinus rhythm Low QRS complex voltage in the limb leads Nonspecific T wave abnormality No significant change when compared to prior tracing of 04/12/2019 Electronically Signed on 04-14-2019 21:37:20 EST by Tyrel Edmonds
--- NOTE | 2019-04-14 21:41 | ECGEPIP ---
[facility] Test Date: 2019-04-13 Pat Name: PAUL ROCHA Department: Room: O5107-74 Gender: Male Surgical Aide: SARAH : 1950 Requested By: ALEXANDER Cowart Order Number: [id number] Reading MD: Tyrel Edmonds Measurements Intervals [place] Rate: 84 P: 79 [place]: 158 QRS: 38 QRSD: 83 T: 62 QT: 355 QTc: 421 Interpretive Statements Normal sinus rhythm PAC Low QRS complex voltage in the limb leads Nonspecific T wave abnormality No significant change when compared to prior tracing of 04/12/2019 Electronically Signed on 04-14-2019 21:40:48 EST by Tyrel Edmonds
== END 2019-04-13 18:30 | disposition short-term general hospital (02) | DRG 329 ==
LOC: M ED 10:59 → M SDC 11:00 → UNDOADMIN 13:00 → M ED INP 13:00 → M MSPAV 17:59 → M SDC 18:38 → M MSPAV 18:38 → M ED INP 18:38 → M ICU 04-13 07:15 → M MSPAV 04-13 07:15 → UNDOFXSDCACCOM 04-13 07:15 → UNDOFXSDCSVC 04-13 07:15 → M ICU 04-13 07:15 → M SDC 04-13 18:30 → UNDODISIN 04-13 18:30
PROVIDERS: ADMIT Surgery; ATTEND Surgery
PROC: 0DB80ZZ Excision of Small Intestine, Open Approach (ICD-10-PCS; principal; 2019-04-12 14:26)
DX: K41.30 Unilateral femoral hernia, with obstruction, without gangrene, not specified as recurrent (principal); J96.01 Acute respiratory failure with hypoxia; K56.2 Volvulus; D62 Acute posthemorrhagic anemia; K91.840 Postprocedural hemorrhage of a digestive system organ or structure following a digestive system procedure; I10 Essential (primary) hypertension; I48.91 Unspecified atrial fibrillation; Z79.01 Long term (current) use of anticoagulants; Z79.899 Other long term (current) drug therapy; Z88.8 Allergy status to other drugs, medicaments and biological substances

== ENCOUNTER → 2019-05-12 | Outpatient (CLI) | payer MEDICARE ==
[~2019-05-12] MED LIST changes: +LISI-1046 PO; +VITMTA PO
[2019-05-12 13:41] LABS: BLOOD UREA NITROGEN 18 MG/DL (7-18); CALCIUM LEVEL 9.3 MG/DL (8.8-10.2); CARBON DIOXIDE LEVEL 31 MEQ/L (21-32); CHLORIDE LEVEL 102 MEQ/L (98-107); CREATININE FOR GFR 0.81 MG/DL (0.70-1.30); GLOMERULAR FILTRATION RATE > 60.0 (>49); GLUCOSE, FASTING 106 MG/DL (70-100); MAGNESIUM LEVEL 1.9 MG/DL (1.8-2.4); POTASSIUM SERUM 4.4 MEQ/L (3.5-5.1); SODIUM LEVEL 138 MEQ/L (136-145)
== END ==
LOC: M PLALAB 09:22
PROVIDERS: ATTEND Internal Medicine Cardiovascular Disease
DX: I48.19 Other persistent atrial fibrillation (principal)

== ENCOUNTER → 2019-05-27 | Outpatient (CLI) | payer MEDICARE ==
[2019-05-27 11:10] LABS: HEMOGLOBIN 12.6 g/dl (13.5-17.5); MEAN CORPUSCULAR HEMOGLOBIN 29.4 pg (27.0-33.0); MEAN CORPUSCULAR HGB CONC 31.5 g/dl (32.0-36.5); MEAN CORPUSCULAR VOLUME 93.5 fl (80.0-96.0); PLATELET COUNT, AUTOMATED 287 10^3/uL (150-450); RED BLOOD COUNT 4.28 10^6/uL (4.30-6.10); WHITE BLOOD COUNT 6.7 10^3/uL (4.0-10.0)
[2019-05-27 11:50] LABS: ALBUMIN 3.6 GM/DL (3.2-5.2); ALT/SGPT 11 U/L (12-78); BILIRUBIN,TOTAL 0.6 MG/DL (0.2-1.0); BLOOD UREA NITROGEN 17 MG/DL (7-18); CALCIUM LEVEL 9.2 MG/DL (8.8-10.2); CARBON DIOXIDE LEVEL 28 MEQ/L (21-32); CHLORIDE LEVEL 101 MEQ/L (98-107); CHOLESTEROL LEVEL 177 MG/DL (<200); CHOLESTEROL RISK RATIO 4.783 (<5); CREATININE FOR GFR 0.76 MG/DL (0.70-1.30); GLOMERULAR FILTRATION RATE > 60.0 (>49); GLUCOSE, FASTING 79 MG/DL (70-100); HDL CHOLESTEROL 37 MG/DL (>40); LDL CHOLESTEROL 113 MG/DL (<100); NON-HDL-C 140 MG/DL; POTASSIUM SERUM 4.9 MEQ/L (3.5-5.1); PROSTATIC SPECIFIC AG MONITOR 4.69 NG/ML (< 4.00); SODIUM LEVEL 138 MEQ/L (136-145); TOTAL PROTEIN 6.7 GM/DL (6.4-8.2); TRIGLYCERIDES LEVEL 133 MG/DL (<150)
== END ==
LOC: M PLALAB 08:07
PROVIDERS: ATTEND Internal Medicine
DX: E78.00 Pure hypercholesterolemia, unspecified (principal); I11.9 Hypertensive heart disease without heart failure; R97.20 Elevated prostate specific antigen [PSA]; Z87.11 Personal history of peptic ulcer disease

== ENCOUNTER → 2019-09-23 | Outpatient (REF) | payer MEDICARE ==
[2019-09-23 10:54] LABS: HEMATOCRIT 42.9 % (42.0-52.0); HEMOGLOBIN 14.8 g/dl (13.5-17.5); MEAN CORPUSCULAR HGB CONC 34.5 g/dl (32.0-36.5); MEAN CORPUSCULAR VOLUME 92.7 fl (80.0-96.0); PLATELET COUNT, AUTOMATED 246 10^3/uL (150-450); RED BLOOD COUNT 4.63 10^6/uL (4.30-6.10); WHITE BLOOD COUNT 7.5 10^3/uL (4.0-10.0)
[2019-09-23 11:19] LABS: ALBUMIN 3.7 GM/DL (3.2-5.2); ALT/SGPT 16 U/L (12-78); BILIRUBIN,TOTAL 1.1 MG/DL (0.2-1.0); BLOOD UREA NITROGEN 15 MG/DL (7-18); CALCIUM LEVEL 9.1 MG/DL (8.8-10.2); CARBON DIOXIDE LEVEL 29 MEQ/L (21-32); CHLORIDE LEVEL 101 MEQ/L (98-107); CHOLESTEROL LEVEL 186 MG/DL (<200); CHOLESTEROL RISK RATIO 4.227 (<5); CREATININE FOR GFR 0.92 MG/DL (0.70-1.30); GLOMERULAR FILTRATION RATE > 60.0 (>49); GLUCOSE, FASTING 91 MG/DL (70-100); HDL CHOLESTEROL 44 MG/DL (>40); LDL CHOLESTEROL 109 MG/DL (<100); NON-HDL-C 142 MG/DL; POTASSIUM SERUM 4.8 MEQ/L (3.5-5.1); PROSTATIC SPECIFIC AG MONITOR 0.73 NG/ML (< 4.00); SODIUM LEVEL 136 MEQ/L (136-145); TOTAL PROTEIN 6.9 GM/DL (6.4-8.2); TRIGLYCERIDES LEVEL 165 MG/DL (<150)
== END ==
LOC: M PLALAB 08:00
PROVIDERS: ATTEND Internal Medicine
DX: R97.20 Elevated prostate specific antigen [PSA] (principal); Z87.11 Personal history of peptic ulcer disease; I11.9 Hypertensive heart disease without heart failure; E78.00 Pure hypercholesterolemia, unspecified

== ENCOUNTER → 2020-04-06 | Outpatient (REF) | payer MEDICARE ==
[~2020-04-06] MED LIST changes: -AMIO200T PO; +AMIO200T3 PO; -LISI-1046 PO; +LISI2.5T2 PO; -LISI20TA19 PO; +LISI20TA35 PO
[2020-04-06 11:21] LABS: ALBUMIN 4.1 GM/DL (3.2-5.2); ALT/SGPT 16 U/L (12-78); BILIRUBIN,TOTAL 0.8 MG/DL (0.2-1.0); BLOOD UREA NITROGEN 27 MG/DL (7-18); CALCIUM LEVEL 9.6 MG/DL (8.8-10.2); CARBON DIOXIDE LEVEL 30 MEQ/L (21-32); CHLORIDE LEVEL 97 MEQ/L (98-107); CHOLESTEROL LEVEL 231 MG/DL (<200); CHOLESTEROL RISK RATIO 5.021 (<5); CREATININE FOR GFR 0.93 MG/DL (0.70-1.30); GLOMERULAR FILTRATION RATE > 60.0 (>49); GLUCOSE, FASTING 96 MG/DL (70-100); HDL CHOLESTEROL 46 MG/DL (>40); LDL CHOLESTEROL 146 MG/DL (<100); MAGNESIUM LEVEL 2.1 MG/DL (1.8-2.4); NON-HDL-C 185 MG/DL; SODIUM LEVEL 131 MEQ/L (136-145); TOTAL PROTEIN 7.2 GM/DL (6.4-8.2); TRIGLYCERIDES LEVEL 193 MG/DL (<150)
== END ==
LOC: M PLALAB 08:05
PROVIDERS: ATTEND Internal Medicine
DX: I11.9 Hypertensive heart disease without heart failure (principal); E78.00 Pure hypercholesterolemia, unspecified

== ENCOUNTER → 2020-07-01 | Outpatient (CLI) | payer MEDICARE ==
--- NOTE | 2020-07-01 09:35 | REP ---
INDICATION: LUNG NODULES. COMPARISON: 04/13/2019. TECHNIQUE: CT chest performed without the use of intravenous contrast. Sagittal and coronal reconstruction images are performed. FINDINGS: Lungs: There is minor scattered interstitial fibrotic scarring throughout both lungs. No infiltrate or suspicious nodule is seen. Mediastinum: No gross adenopathy. Kathi: No gross adenopathy. Axilla: No gross adenopathy. Pleura: No effusion. There is mild biapical pleural thickening. Heart: Not enlarged. Thoracic aorta: No aneurysm. Upper abdominal structures: There is a small hiatal hernia. There is a 5.5 cm cyst in the upper pole the left kidney. There is an adjacent smaller cyst and punctate calcification. Visualized osseous structures: There are degenerative changes of the spine. There is bilateral gynecomastia. IMPRESSION: Mild chronic changes. No infiltrate, suspicious nodule or evidence of adenopathy. <Electronically signed by Román Cantrell > 07/01/20 [id number]
== END ==
LOC: M RAD 08:45
PROVIDERS: ATTEND Internal Medicine
DX: R91.8 Other nonspecific abnormal finding of lung field (principal)

== ENCOUNTER → 2020-08-02 | Outpatient (CLI) | payer MEDICARE ==
[2020-08-02 14:09] LABS: HEMATOCRIT 41.5 % (42.0-52.0); HEMOGLOBIN 14.2 g/dl (13.5-17.5); MEAN CORPUSCULAR HEMOGLOBIN 33.2 pg (27.0-33.0); MEAN CORPUSCULAR HGB CONC 34.2 g/dl (32.0-36.5); PLATELET COUNT, AUTOMATED 264 10^3/uL (150-450); RED BLOOD COUNT 4.28 10^6/uL (4.30-6.10); WHITE BLOOD COUNT 6.2 10^3/uL (4.0-10.0)
[2020-08-02 14:54] LABS: ALBUMIN 4.3 GM/DL (3.2-5.2); ALT/SGPT 18 U/L (12-78); BILIRUBIN,TOTAL 0.6 MG/DL (0.2-1.0); BLOOD UREA NITROGEN 23 MG/DL (7-18); CALCIUM LEVEL 9.4 MG/DL (8.8-10.2); CARBON DIOXIDE LEVEL 30 MEQ/L (21-32); CHLORIDE LEVEL 99 MEQ/L (98-107); CHOLESTEROL LEVEL 209 MG/DL (<200); CREATININE FOR GFR 0.87 MG/DL (0.70-1.30); GLOMERULAR FILTRATION RATE > 60.0 (>49); GLUCOSE, FASTING 98 MG/DL (70-100); HDL CHOLESTEROL 43 MG/DL (>40); LDL CHOLESTEROL 138 MG/DL (<100); MAGNESIUM LEVEL 2.1 MG/DL (1.8-2.4); NON-HDL-C 166 MG/DL; NT-PRO BNP 148 PG/ML (<125); POTASSIUM SERUM 4.8 MEQ/L (3.5-5.1); SODIUM LEVEL 134 MEQ/L (136-145); TOTAL PROTEIN 6.9 GM/DL (6.4-8.2); TRIGLYCERIDES LEVEL 138 MG/DL (<150)
== END ==
LOC: M PLALAB 10:53
PROVIDERS: ATTEND Internal Medicine Cardiovascular Disease
DX: E78.2 Mixed hyperlipidemia (principal); I47.2 Ventricular tachycardia

== ENCOUNTER → 2020-10-05 | Outpatient (REF) | payer MEDICARE ==
[2020-10-05 10:31] LABS: BASO % 0.7 % (0.0-1.0); EOS # 0.1 10^3/uL (0.0-0.5); EOS % 2.3 % (0.0-3.0); HEMATOCRIT 42.9 % (42.0-52.0); HEMOGLOBIN 14.5 g/dl (13.5-17.5); LYMPH # 1.4 10^3/uL (1.5-5.0); LYMPH % 23.4 % (24.0-44.0); MEAN CORPUSCULAR HEMOGLOBIN 32.7 pg (27.0-33.0); MEAN CORPUSCULAR HGB CONC 33.8 g/dl (32.0-36.5); MEAN CORPUSCULAR VOLUME 96.6 fl (80.0-96.0); MONO # 0.9 10^3/uL (0.0-0.8); MONO % 15.1 % (2.0-8.0); NEUTROPHILS # 3.5 10^3/uL (1.5-8.5); NEUTROPHILS % 58.2 % (36.0-66.0); PLATELET COUNT, AUTOMATED 266 10^3/uL (150-450); RED BLOOD COUNT 4.44 10^6/uL (4.30-6.10)
[2020-10-05 11:02] LABS: ALT/SGPT 18 U/L (12-78); BLOOD UREA NITROGEN 22 MG/DL (7-18); CALCIUM LEVEL 9.4 MG/DL (8.8-10.2); CARBON DIOXIDE LEVEL 28 MEQ/L (21-32); CHLORIDE LEVEL 100 MEQ/L (98-107); CHOLESTEROL LEVEL 173 MG/DL (<200); CREATININE FOR GFR 0.84 MG/DL (0.70-1.30); GLOMERULAR FILTRATION RATE > 60.0 (>49); GLUCOSE, FASTING 98 MG/DL (70-100); HDL CHOLESTEROL 46 MG/DL (>40); LDL CHOLESTEROL 106 MG/DL (<100); MAGNESIUM LEVEL 2.2 MG/DL (1.8-2.4); NON-HDL-C 127 MG/DL; POTASSIUM SERUM 5.1 MEQ/L (3.5-5.1); SODIUM LEVEL 133 MEQ/L (136-145); TOTAL PROTEIN 7.1 GM/DL (6.4-8.2); TRIGLYCERIDES LEVEL 106 MG/DL (<150)
== END ==
LOC: M PLALAB 08:05
PROVIDERS: ATTEND Internal Medicine
DX: G47.33 Obstructive sleep apnea (adult) (pediatric) (principal); I11.9 Hypertensive heart disease without heart failure; E78.00 Pure hypercholesterolemia, unspecified

== ENCOUNTER → 2021-04-14 | Outpatient (REF) | payer MEDICARE ==
[~2021-04-14] MED LIST changes: -LISI2.5T2 PO; +LISI2.5T9 PO
== END ==
LOC: M SFHCPLAZ 08:25
PROVIDERS: ATTEND Internal Medicine
DX: G47.33 Obstructive sleep apnea (adult) (pediatric) (principal); I11.9 Hypertensive heart disease without heart failure; Z11.59 Encounter for screening for other viral diseases; E78.00 Pure hypercholesterolemia, unspecified; R97.20 Elevated prostate specific antigen [PSA]; Z53.9 Procedure and treatment not carried out, unspecified reason

== ENCOUNTER → 2021-04-14 | Outpatient (CLI) | payer MEDICARE ==
[2021-04-14 10:19] LABS: BASO % 0.6 % (0.0-1.0); EOS # 0.2 10^3/uL (0.0-0.5); EOS % 2.3 % (0.0-3.0); HEMATOCRIT 43.7 % (42.0-52.0); HEMOGLOBIN 14.6 g/dl (13.5-17.5); LYMPH % 15.8 % (24.0-44.0); MEAN CORPUSCULAR HEMOGLOBIN 32.4 pg (27.0-33.0); MEAN CORPUSCULAR HGB CONC 33.4 g/dl (32.0-36.5); MEAN CORPUSCULAR VOLUME 96.9 fl (80.0-96.0); MONO % 15.2 % (2.0-8.0); NEUTROPHILS # 4.4 10^3/uL (1.5-8.5); NEUTROPHILS % 65.8 % (36.0-66.0); PLATELET COUNT, AUTOMATED 263 10^3/uL (150-450); RED BLOOD COUNT 4.51 10^6/uL (4.30-6.10); WHITE BLOOD COUNT 6.6 10^3/uL (4.0-10.0)
[2021-04-14 10:50] LABS: ALBUMIN 3.9 GM/DL (3.2-5.2); ALT/SGPT 20 U/L (12-78); BLOOD UREA NITROGEN 20 MG/DL (7-18); CALCIUM LEVEL 9.3 MG/DL (8.8-10.2); CARBON DIOXIDE LEVEL 30 MEQ/L (21-32); CHLORIDE LEVEL 100 MEQ/L (98-107); CHOLESTEROL LEVEL 172 MG/DL (<200); CHOLESTEROL RISK RATIO 3.822 (<5); CREATININE FOR GFR 0.96 MG/DL (0.70-1.30); GLOMERULAR FILTRATION RATE > 60.0 (>49); GLUCOSE, FASTING 96 MG/DL (70-100); HDL CHOLESTEROL 45 MG/DL (>40); LDL CHOLESTEROL 101 MG/DL (<100); MAGNESIUM LEVEL 2.2 MG/DL (1.8-2.4); NON-HDL-C 127 MG/DL; POTASSIUM SERUM 5.1 MEQ/L (3.5-5.1); PROSTATIC SPECIFIC AG MONITOR 0.56 NG/ML (< 4.00); SODIUM LEVEL 133 MEQ/L (136-145); TOTAL PROTEIN 7.1 GM/DL (6.4-8.2); TRIGLYCERIDES LEVEL 129 MG/DL (<150)
[2021-04-14 12:04] LABS: HEPATITIS C VIRUS ABY INDEX < 0.0 INDEX (<0.8)
== END ==
LOC: M PLALAB 08:38
PROVIDERS: ATTEND Internal Medicine
DX: G47.33 Obstructive sleep apnea (adult) (pediatric) (principal); E78.00 Pure hypercholesterolemia, unspecified; R97.20 Elevated prostate specific antigen [PSA]

== ENCOUNTER → 2021-04-20 | Outpatient (CLI) | payer MEDICARE | LOC: M LABSMTC 10:59 | PROVIDERS: ATTEND Internal Medicine Cardiovascular Disease | DX: Z11.52 Encounter for screening for COVID-19 (principal) ==

== ENCOUNTER → 2021-07-01 | Outpatient (CLI) | payer MEDICARE ==
[~2021-07-01] MED LIST changes: -AMIO200T3 PO; +AMIO200T49 PO
== END ==
LOC: M LABSMTC 09:47
PROVIDERS: ATTEND Pediatrics
DX: Z20.822 Contact with and (suspected) exposure to COVID-19 (principal)

== ENCOUNTER → 2021-10-11 | Outpatient (CLI) | payer MEDICARE ==
[2021-10-11 11:53] LABS: ALBUMIN 4.1 GM/DL (3.2-5.2); ALT/SGPT 16 U/L (12-78); BILIRUBIN,TOTAL 0.9 MG/DL (0.2-1.0); BLOOD UREA NITROGEN 24 MG/DL (7-18); CALCIUM LEVEL 9.6 MG/DL (8.8-10.2); CARBON DIOXIDE LEVEL 28 MEQ/L (21-32); CHLORIDE LEVEL 102 MEQ/L (98-107); CHOLESTEROL LEVEL 170 MG/DL (<200); CHOLESTEROL RISK RATIO 3.777 (<5); CREATININE FOR GFR 0.82 MG/DL (0.70-1.30); GLOMERULAR FILTRATION RATE > 60.0 (>49); GLUCOSE, FASTING 97 MG/DL (70-100); HDL CHOLESTEROL 45 MG/DL (>40); LDL CHOLESTEROL 103 MG/DL (<100); NON-HDL-C 125 MG/DL; POTASSIUM SERUM 4.5 MEQ/L (3.5-5.1); SODIUM LEVEL 137 MEQ/L (136-145); TOTAL PROTEIN 6.9 GM/DL (6.4-8.2); TRIGLYCERIDES LEVEL 108 MG/DL (<150)
== END ==
LOC: M PLALAB 08:00
PROVIDERS: ATTEND Internal Medicine
DX: I11.9 Hypertensive heart disease without heart failure (principal)

== ENCOUNTER → 2021-10-25 | Outpatient (CLI) | payer MEDICARE ==
[2021-10-25 16:39] LABS: BLOOD UREA NITROGEN 20 MG/DL (7-18); CALCIUM LEVEL 9.2 MG/DL (8.8-10.2); CARBON DIOXIDE LEVEL 28 MEQ/L (21-32); CHLORIDE LEVEL 100 MEQ/L (98-107); CREATININE FOR GFR 0.92 MG/DL (0.70-1.30); GLOMERULAR FILTRATION RATE > 60.0 (>49); GLUCOSE, FASTING 118 MG/DL (70-100); MAGNESIUM LEVEL 2.2 MG/DL (1.8-2.4); POTASSIUM SERUM 4.6 MEQ/L (3.5-5.1); SODIUM LEVEL 133 MEQ/L (136-145)
== END ==
LOC: M WUC 10:34
PROVIDERS: ATTEND Internal Medicine Cardiovascular Disease
DX: I48.11 Longstanding persistent atrial fibrillation (principal)

== ENCOUNTER → 2022-04-24 | Outpatient (CLI) | payer MEDICARE ==
[2022-04-24 12:36] LABS: BLOOD UREA NITROGEN 19 MG/DL (7-18); CALCIUM LEVEL 9.5 MG/DL (8.8-10.2); CARBON DIOXIDE LEVEL 29 MEQ/L (21-32); CHLORIDE LEVEL 100 MEQ/L (98-107); CREATININE FOR GFR 1.01 MG/DL (0.70-1.30); GLOMERULAR FILTRATION RATE > 60.0 (>49); GLUCOSE, FASTING 107 MG/DL (70-100); MAGNESIUM LEVEL 2.3 MG/DL (1.8-2.4); POTASSIUM SERUM 5.2 MEQ/L (3.5-5.1); PROSTATIC SPECIFIC AG MONITOR 0.25 NG/ML (< 4.00); SODIUM LEVEL 134 MEQ/L (136-145)
== END ==
LOC: M PLALAB 08:11
PROVIDERS: ATTEND Family Medicine
DX: R97.20 Elevated prostate specific antigen [PSA] (principal); I11.9 Hypertensive heart disease without heart failure

== ENCOUNTER → 2022-10-25 | Outpatient (CLI) | payer MEDICARE ==
[2022-10-25 11:21] LABS: BLOOD UREA NITROGEN 22 MG/DL (9-23); CALCIUM LEVEL 9.4 MG/DL (8.3-10.6); CARBON DIOXIDE LEVEL 29 MMOL/L (20-31); CHLORIDE LEVEL 96 MMOL/L (98-107); CHOLESTEROL LEVEL 183 MG/DL (<200); CHOLESTEROL RISK RATIO 3.32 (<5); GLOMERULAR FILTRATION RATE > 60.0 (>42); GLUCOSE, FASTING 93 MG/DL (74-106); HDL CHOLESTEROL 55.1 MG/DL (>40); LDL CHOLESTEROL 103.3 MG/DL (<100); NON-HDL-C 127.9 MG/DL; POTASSIUM SERUM 5.2 MMOL/L (3.5-5.1); SODIUM LEVEL 128 MMOL/L (136-145); TRIGLYCERIDES LEVEL 123 MG/DL (<150)
[2022-10-25 11:47] LABS: CREATININE, URINE 38.8 MG/DL
[2022-10-25 11:48] LABS: MALB URINE SIEMENS < 3.0 MG/L; MAU/CREAT RATIO 7.7 MCG/MG (0.0-30.0)
== END ==
LOC: M PLALAB 07:24
PROVIDERS: ATTEND Family Medicine
DX: E78.00 Pure hypercholesterolemia, unspecified (principal)

== ENCOUNTER → 2022-11-10 | Outpatient (CLI) | payer MEDICARE ==
[2022-11-10 13:37] LABS: OSMOLALITY URINE 838 MOSM/KG (50-1400)
[2022-11-10 13:46] LABS: APPEARANCE, URINE CLEAR (CLEAR); BACTERIA, URINE AUTO NEGATIVE (NEGATIVE); BILIRUBIN, URINE AUTO NEGATIVE (NEGATIVE); BLOOD, URINE BLOOD NEGATIVE (NEGATIVE); COLOR, URINE AMBER (YELLOW); GLUCOSE, URINE (UA) AUTO NEGATIVE (NEGATIVE); KETONE, URINE AUTO TRACE mg/dL (NEGATIVE); LEUKOCYTE ESTERASE, URINE AUTO NEGATIVE (NEGATIVE); MUCUS, URINE SMALL (NEGATIVE); NITRITE, URINE AUTO NEGATIVE (NEGATIVE); PROTEIN, URINE AUTO NEGATIVE (NEGATIVE); RBC, URINE AUTO 3 /HPF (0-3); SPECIFIC GRAVITY URINE AUTO 1.032 (1.002-1.035); SQUAMOUS EPITHELIAL CELL UR AU 1 /HPF (0-6); UROBILINOGEN, URINE AUTO 0.2 mg/dL (0.0-2.0); WBC, URINE AUTO 0 /HPF (0-3)
[2022-11-10 13:57] LABS: SODIUM,RANDOM URINE 115 MMOL/L
[2022-11-10 14:04] LABS: OSMOLALITY SERUM 293 MOSM/KG (280-301)
[2022-11-10 14:10] LABS: BLOOD UREA NITROGEN 28 MG/DL (9-23); CARBON DIOXIDE LEVEL 28 MMOL/L (20-31); CHLORIDE LEVEL 102 MMOL/L (98-107); CREATININE FOR GFR 0.98 MG/DL (0.70-1.30); GLOMERULAR FILTRATION RATE > 60.0 (>42); GLUCOSE, FASTING 91 MG/DL (74-106); POTASSIUM SERUM 5.3 MMOL/L (3.5-5.1); SODIUM LEVEL 134 MMOL/L (136-145)
[2022-11-10 14:12] LABS: THYROID STIMULATING HORMONE 0.806 uIU/ML (0.55-4.78)
== END ==
LOC: M PLALAB 09:32
PROVIDERS: ATTEND Family Medicine
DX: I11.9 Hypertensive heart disease without heart failure (principal); E87.5 Hyperkalemia; E87.1 Hypo-osmolality and hyponatremia

== ENCOUNTER → 2023-06-05 | Outpatient (CLI) | payer MEDICARE ==
[2023-06-05 10:36] LABS: BLOOD UREA NITROGEN 30 MG/DL (9-23); CALCIUM LEVEL 9.4 MG/DL (8.3-10.6); CARBON DIOXIDE LEVEL 33 MMOL/L (20-31); CHLORIDE LEVEL 97 MMOL/L (98-107); CREATININE FOR GFR 1.01 MG/DL (0.70-1.30); GLOMERULAR FILTRATION RATE > 60.0 (>42); GLUCOSE, FASTING 91 MG/DL (74-106); POTASSIUM SERUM 4.2 MMOL/L (3.5-5.1); SODIUM LEVEL 135 MMOL/L (136-145)
== END ==
LOC: M LAB 09:12
PROVIDERS: ATTEND Family Medicine
DX: I11.9 Hypertensive heart disease without heart failure (principal); E87.5 Hyperkalemia

== ENCOUNTER → 2023-12-21 | Outpatient (CLI) | payer MEDICARE ==
[2023-12-21 11:59] LABS: BLOOD UREA NITROGEN 28 MG/DL (9-23); CALCIUM LEVEL 9.2 MG/DL (8.3-10.6); CARBON DIOXIDE LEVEL 29 MMOL/L (20-31); CHLORIDE LEVEL 102 MMOL/L (98-107); CHOLESTEROL LEVEL 152 MG/DL (<200); CHOLESTEROL RISK RATIO 3.64 (<5); CREATININE FOR GFR 0.97 MG/DL (0.70-1.30); GLOMERULAR FILTRATION RATE > 60.0 (>42); GLUCOSE, FASTING 90 MG/DL (74-106); HDL CHOLESTEROL 41.7 MG/DL (>40); LDL CHOLESTEROL 60.7 MG/DL (<100); NON-HDL-C 110.3 MG/DL; POTASSIUM SERUM 4.8 MMOL/L (3.5-5.1); SODIUM LEVEL 136 MMOL/L (136-145); TRIGLYCERIDES LEVEL 248 MG/DL (<150)
== END ==
LOC: M PLALAB 08:36
PROVIDERS: ATTEND Family Medicine
DX: E87.1 Hypo-osmolality and hyponatremia (principal); E78.00 Pure hypercholesterolemia, unspecified

== ENCOUNTER 2024-03-26 06:38 | Day surgery (SDC) | payer MEDICARE ==
[~2024-03-26] VITALS: Ht 182.9 cm; Wt 81.8 kg
[~2024-03-26 06:38] MED LIST changes: +FINA-48 PO; +FLEC100T27 PO; +FURO40TA2 PO; +GLUC1CAP10 PO; +METO1TAB87 PO; +NS 250 ML IV ONE; +ROSU20TA86 PO; +SPIR50TA4 PO; +THERTAB52 PO; +estradiol IM
[2024-03-26] MEDS ORDERED: LIDOCAINE 2% 100MG/5ML SDV (FOR ANES.) As Ordered ONE (07:10)
[2024-03-26] MEDS ORDERED: propofoL 200 MG/20 ML VIAL As Ordered ONE (07:10)
[2024-03-26 08:09] VITALS: TEMP 97.9
[2024-03-26 08:28] VITALS: BP 142/80; O2SAT 98
== END 2024-03-26 08:34 | disposition home or self-care (01) ==
LOC: M OPP 06:38
PROVIDERS: ATTEND Surgery
DX: Z12.11 Encounter for screening for malignant neoplasm of colon (principal); Z12.12 Encounter for screening for malignant neoplasm of rectum; D12.5 Benign neoplasm of sigmoid colon; D12.3 Benign neoplasm of transverse colon; D12.0 Benign neoplasm of cecum; K57.30 Diverticulosis of large intestine without perforation or abscess without bleeding; K64.8 Other hemorrhoids; K64.4 Residual hemorrhoidal skin tags; I48.91 Unspecified atrial fibrillation; K21.9 Gastro-esophageal reflux disease without esophagitis; Z90.49 Acquired absence of other specified parts of digestive tract; I10 Essential (primary) hypertension; E78.00 Pure hypercholesterolemia, unspecified; G47.30 Sleep apnea, unspecified; Z85.828 Personal history of other malignant neoplasm of skin; Z79.899 Other long term (current) drug therapy; Z88.6 Allergy status to analgesic agent; Z90.89 Acquired absence of other organs

== ENCOUNTER → 2024-07-22 | Outpatient (CLI) | payer MEDICARE ==
[~2024-07-22] MED LIST changes: -NS 250 ML IV ONE
== END ==
LOC: M SOG 07:53
PROVIDERS: ATTEND Physician Assistant
DX: M25.462 Effusion, left knee (principal); M25.562 Pain in left knee; M17.12 Unilateral primary osteoarthritis, left knee

== ENCOUNTER → 2025-01-30 | Outpatient (CLI) | payer MEDICARE ==
[~2025-01-30] MED LIST changes: -AMIO200T49 PO; +AMIO200T54 PO
[2025-01-30 17:10] LABS: PLATELET COUNT, AUTOMATED 251 10^3/uL (150-450)
[2025-01-30 17:36] LABS: ALT/SGPT 16.0 U/L (7.0-40); AST/SGOT 24.0 U/L (<34); CALCIUM LEVEL 10.5 MG/DL (8.3-10.6); CARBON DIOXIDE LEVEL 26.0 MMOL/L (20-31); CHLORIDE LEVEL 104.0 MMOL/L (98-107); CHOLESTEROL LEVEL 178.0 MG/DL (<200); CHOLESTEROL RISK RATIO 3.58 (<5); CREATININE FOR GFR 1.11 MG/DL (0.70-1.30); GLOMERULAR FILTRATION RATE 70.6 (>42); LDL CHOLESTEROL 94.7 MG/DL (<100); NON-HDL-C 128.3 MG/DL; POTASSIUM SERUM 5.1 MMOL/L (3.5-5.1); SODIUM LEVEL 140.0 MMOL/L (136-145); TRIGLYCERIDES LEVEL 168.0 MG/DL (<150)
== END ==
LOC: M PLALAB 16:08
PROVIDERS: ATTEND Family Medicine
DX: I11.9 Hypertensive heart disease without heart failure (principal); E87.1 Hypo-osmolality and hyponatremia; E87.5 Hyperkalemia; E78.00 Pure hypercholesterolemia, unspecified; Z87.11 Personal history of peptic ulcer disease

== ENCOUNTER → 2025-02-16 | Outpatient (CLI) | payer MEDICARE ==
[2025-02-16 11:32] LABS: ALT/SGPT 16 U/L (7.0-40); AST/SGOT 22 U/L (<34); CALCIUM LEVEL 10.4 MG/DL (8.3-10.6); CARBON DIOXIDE LEVEL 30 MMOL/L (20-31); CHLORIDE LEVEL 99 MMOL/L (98-107); CHOLESTEROL LEVEL 172 MG/DL (<200); CHOLESTEROL RISK RATIO 2.95 (<5); CREATININE FOR GFR 0.97 MG/DL (0.70-1.30); GLOMERULAR FILTRATION RATE 82.9 (>42); LDL CHOLESTEROL 83.9 MG/DL (<100); NON-HDL-C 113.7 MG/DL; POTASSIUM SERUM 5.3 MMOL/L (3.5-5.1); SODIUM LEVEL 139 MMOL/L (136-145); TRIGLYCERIDES LEVEL 149 MG/DL (<150)
[2025-02-17 11:17] LABS: RUBEOLA IgG ANTIBODY 218.0 AU/mL (>16.49)
== END ==
LOC: M PLALAB 08:18
PROVIDERS: ATTEND Family Medicine
DX: Z01.84 Encounter for antibody response examination (principal); E78.00 Pure hypercholesterolemia, unspecified

== ENCOUNTER → 2025-03-26 | Outpatient (CLI) | payer MEDICARE ==
[2025-03-26 11:03] LABS: BASO # 0.1 10^3/uL (0.0-0.2); BASO % 0.7 % (0.0-1.0); EOS # 0.2 10^3/uL (0.0-0.5); EOS % 2.4 % (0.0-3.0); LYMPH # 1.6 10^3/uL (1.5-5.0); LYMPH % 23.3 % (24.0-44.0); MONO # 0.9 10^3/uL (0.0-0.8); MONO % 13.6 % (2.0-8.0); NEUTROPHILS # 4.0 10^3/uL (1.5-8.5); NEUTROPHILS % 59.6 % (36.0-66.0); PLATELET COUNT, AUTOMATED 226 10^3/uL (150-450)
[2025-03-26 11:08] LABS: IRON (FE) 165.0 UG/DL (65-175); PERCENT SATURATION 47.0 % (19.7-50.0)
[2025-03-26 11:18] LABS: CALCIUM LEVEL 9.3 MG/DL (8.3-10.6); CARBON DIOXIDE LEVEL 28.0 MMOL/L (20-31); CHLORIDE LEVEL 101.0 MMOL/L (98-107); CREATININE FOR GFR 0.97 MG/DL (0.70-1.30); GLOMERULAR FILTRATION RATE 82.9 (>42); POTASSIUM SERUM 4.3 MMOL/L (3.5-5.1); SODIUM LEVEL 137.0 MMOL/L (136-145)
== END ==
LOC: M PLALAB 08:43
PROVIDERS: ATTEND Family Medicine
DX: Z01.810 Encounter for preprocedural cardiovascular examination (principal); E87.1 Hypo-osmolality and hyponatremia; I11.9 Hypertensive heart disease without heart failure; G47.33 Obstructive sleep apnea (adult) (pediatric); E87.5 Hyperkalemia; I44.0 Atrioventricular block, first degree; I36.1 Nonrheumatic tricuspid (valve) insufficiency; I48.91 Unspecified atrial fibrillation; I28.1 Aneurysm of pulmonary artery; M17.12 Unilateral primary osteoarthritis, left knee; Z92.29 Personal history of other drug therapy; Z78.9 Other specified health status

== ENCOUNTER 2025-04-26 17:24 | Emergency (ER) | payer MEDICARE ==
[~2025-04-26] VITALS: Ht 182.9 cm; Wt 81.8 kg
[2025-04-26 18:57] LABS: BASO # 0.1 10^3/uL (0.0-0.2); BASO % 0.6 % (0.0-1.0); EOS # 0.3 10^3/uL (0.0-0.5); EOS % 2.4 % (0.0-3.0); LYMPH # 0.8 10^3/uL (1.5-5.0); LYMPH % 7.7 % (24.0-44.0); MONO # 1.4 10^3/uL (0.0-0.8); MONO % 13.7 % (2.0-8.0); NEUTROPHILS # 7.6 10^3/uL (1.5-8.5); NEUTROPHILS % 74.9 % (36.0-66.0); PLATELET COUNT, AUTOMATED 222 10^3/uL (150-450)
[2025-04-26 19:16] LABS: CALCIUM LEVEL 8.5 MG/DL (8.3-10.6); CARBON DIOXIDE LEVEL 25.0 MMOL/L (20-31); CHLORIDE LEVEL 100.0 MMOL/L (98-107); CREATININE FOR GFR 0.99 MG/DL (0.70-1.30); GLOMERULAR FILTRATION RATE 80.9 (>42); POTASSIUM SERUM 4.2 MMOL/L (3.5-5.1); SODIUM LEVEL 135.0 MMOL/L (136-145)
[2025-04-26 20:08] VITALS: BP 138/69; TEMP 98.1; O2SAT 98
== END 2025-04-26 20:10 | disposition home or self-care (01) ==
LOC: M ED 17:24
DX: R60.0 Localized edema (principal); I48.91 Unspecified atrial fibrillation; I10 Essential (primary) hypertension; E78.5 Hyperlipidemia, unspecified; G47.33 Obstructive sleep apnea (adult) (pediatric); Z88.6 Allergy status to analgesic agent; Z79.01 Long term (current) use of anticoagulants; Z79.899 Other long term (current) drug therapy; Z79.810 Long term (current) use of selective estrogen receptor modulators (SERMs)